=== PATIENT | male | born 1955 | race Caucasian/White ===

== ENCOUNTER → 2017-12-27 | Outpatient (CLI) | payer OTHER ==
[2017-12-27 12:48] LABS: CREATININE 0.9 mg/dL (0.5-1.5)
== END | disposition home or self-care (01) ==
LOC: LAB 12:10
PROVIDERS: ATTEND Internal Medicine Gastroenterology
DX: R63.4 Abnormal weight loss (principal); R11.0 Nausea
CPT/HCPCS: 36415; 82565; 84520

== ENCOUNTER → 2020-01-06 | Outpatient (CLI) | payer OTHER ==
[~2020-01-06] MED LIST: BUPR150SR PO; CHOL200079 PO; CYAN250014 PO; ENOX60DI7 SQ; LISI10TA7 PO; MULT-1203 PO; OMEG1CAP31 PO; OMEP-272 PO; SIMV-43 PO; WARF7.5T49 PO
== END | disposition home or self-care (01) ==
LOC: OIH 14:17
PROVIDERS: ATTEND Family Medicine
DX: I10 Essential (primary) hypertension (principal)
CPT/HCPCS: 71046

== ENCOUNTER → 2020-02-06 | Outpatient (CLI) | payer OTHER | END | disposition home or self-care (01) | LOC: RAH 13:08 | PROVIDERS: ATTEND Internal Medicine | DX: M47.9 Spondylosis, unspecified (principal); I10 Essential (primary) hypertension | CPT/HCPCS: 71046 ==

== ENCOUNTER 2020-03-11 05:43 | Observation (INO) | payer OTHER ==
[2020-02-25 11:16] LABS: BASOPHILS % (AUTO) 0.3 % (0.0-5.0); EOSINOPHILS % (AUTO) 0.5 % (0.0-8.0); HEMATOCRIT 40.1 % (42-54); LYMPHOCYTES % (AUTO) 21.2 % (21.0-51.0); MEAN CORPUSCULAR HEMOGLOBIN 30.3 pg (27.0-33.0); MEAN CORPUSCULAR HGB CONC 32.9 g/dL (32.0-36.0); MEAN CORPUSCULAR VOLUME 92.2 fL (79-99); MONOCYTES % (AUTO) 8.4 % (3.0-13.0); NEUTROPHILS % (AUTO) 68.6 % (40.0-77.0); PLATELET COUNT (AUTO) 387 K/uL (130-400); RED BLOOD CELL COUNT(AUTO) 4.35 MIL/uL (4.50-6.20); RED CELL DISTRIBUTION WIDTH 12.4 % (11.0-15.5); WHITE BLOOD COUNT (AUTO) 8.7 K/uL (4.8-10.8)
[2020-02-25 11:25] LABS: POTASSIUM 5.4 mmol/L (3.5-5.1)
[2020-02-25 12:40] LABS: INR 2.3 (0.85-1.15); PROTHROMBIN TIME 24.1 SEC (9.6-11.6)
[2020-03-09 12:46] LABS: BASOPHILS % (AUTO) 0.4 % (0.0-5.0); HEMATOCRIT 37.4 % (42-54); LYMPHOCYTES % (AUTO) 29.1 % (21.0-51.0); MEAN CORPUSCULAR HEMOGLOBIN 29.6 pg (27.0-33.0); MEAN CORPUSCULAR HGB CONC 32.6 g/dL (32.0-36.0); MEAN CORPUSCULAR VOLUME 90.8 fL (79-99); MONOCYTES % (AUTO) 8.7 % (3.0-13.0); PLATELET COUNT (AUTO) 342 K/uL (130-400); RED BLOOD CELL COUNT(AUTO) 4.12 MIL/uL (4.50-6.20); RED CELL DISTRIBUTION WIDTH 12.9 % (11.0-15.5); WHITE BLOOD COUNT (AUTO) 7.1 K/uL (4.8-10.8)
[2020-03-09 13:00] LABS: CREATININE 0.9 mg/dL (0.5-1.5)
[2020-03-09 13:03] LABS: INR 1.18 (0.85-1.15); PARTIAL THROMBOPLASTIN TIME 32.3 SEC (26.3-35.5); PROTHROMBIN TIME 12.7 SEC (9.6-11.6)
[2020-03-10 09:59] VITALS: BP 113/72
[~2020-03-11] VITALS: Ht 175.3 cm; Wt 90.5 kg
[2020-03-11] VITALS (25 sets, daily range): BP systolic 110–156; BP diastolic 69–94
[~2020-03-11 05:43] MED LIST changes: +APIX5TAB PO; -ENOX60DI7 SQ; -LISI10TA7 PO; +LISI20TA24 PO
[2020-03-11] MEDS ORDERED: CLINDAMYCIN IVPB 900MG/50ML 50 ML IV ONE (06:39)
[2020-03-11] MEDS ORDERED: LACTATED RINGERS 1000ML 1,000 ML IV ONE (06:39)
[2020-03-11] MEDS ORDERED: SUCCINYLCHOLINE CHLORIDE 20 MG/ML 10 ML VIAL ONE (07:26)
[2020-03-11] MEDS ORDERED: ONDANSETRON 4MG INJ ONE (07:26)
[2020-03-11] MEDS ORDERED: LIDOCAINE PF 100MG/5ML (2%) SYRINGE 5ML ONE (07:26)
[2020-03-11] MEDS ORDERED: DEXAMETHASONE SOD PHOSPHATE 10MG/ML 1ML VIAL ONE (07:26)
[2020-03-11] MEDS ORDERED: GLYCOPYRROLATE 1 MG/5 ML SYRINGE ONE (07:26)
[2020-03-11] MEDS ORDERED: ROCURONIUM 10MG/1ML SYR 10 MG/ML ML ONE ×2 (07:27→08:54)
[2020-03-11] MEDS ORDERED: MIDAZOLAM HCL 1 MG/ML 2ML VIAL ONE (07:27)
[2020-03-11] MEDS ORDERED: FENTANYL CITRATE PF 50 MCG/1 ML 2ML VIAL ONE ×3 (07:27→11:22)
[2020-03-11] MEDS ORDERED: PROPOFOL 10 MG/ML 20ML VIAL IV ONE (07:27)
[2020-03-11] MEDS ORDERED: NEOSTIGMINE 5MG/5ML SYR IV ONE (07:27)
[2020-03-11] MEDS ORDERED: MEPERIDINE-PF 25 MG/ML SYG ONE ×4 (07:30→12:22)
[2020-03-11] MEDS ORDERED: ROPIVACAINE 0.5% 5MG/ML 30ML IJ ONE (07:35)
[2020-03-11] MEDS ORDERED: TRANEXAMIC ACID 1000MG/10ML ONE (08:16)
[2020-03-11] MEDS ORDERED: HETASTARCH IN 0.9 % NACL 500 ML IV ONE (08:34)
[2020-03-11] MEDS ORDERED: KETOROLAC 30MG VIAL (30MG/ML) ONE (11:22)
[2020-03-11] MEDS: 0.9%NACL 1000ML 1,000 ML IV SCH ×2 (11:45→22:25)
[2020-03-11] MEDS ORDERED: TRAMADOL HCL 50 MG TABLET PO PRN (11:45)
[2020-03-11] MEDS: ACETAMINOPHEN 500 MG TABLET PO SCH ×2 (11:45→20:40)
[2020-03-11] MEDS ORDERED: ONDANSETRON 4MG INJ IVP PRN (11:45)
[2020-03-11] MEDS ORDERED: HEPARIN 5,000 UNIT VIAL SQ SCH (12:45)
[2020-03-11] MEDS ORDERED: HYDROMORPHONE 1 MG INJ IVP PRN (20:30)
[2020-03-11] MEDS: CLINDAMYCIN IVPB 900MG/50ML 50 ML IVPB SCH (20:39)
[2020-03-11] MEDS: WARFARIN SODIUM 5 MG TAB PO SCH (20:39)
[2020-03-11] MEDS: ENOXAPARIN SODIUM 30 MG/0.3 ML SQ SCH (20:39)
[2020-03-11] MEDS: BUPROPION HCL 150 MG TABLET.SA PO SCH (20:39)
[2020-03-11] MEDS: MORPHINE 4 MG SYG IVP PRN ×2 (20:40→23:07)
[2020-03-11] MEDS: LISINOPRIL 20 MG TABLET PO SCH (20:40)
[2020-03-11] MEDS ORDERED: OMEPRAZOLE MAGNESIUM 20 MG PO SCH (21:00)
[2020-03-12] MEDS: CLINDAMYCIN IVPB 900MG/50ML 50 ML IVPB SCH (03:23)
[2020-03-12] MEDS: ACETAMINOPHEN 500 MG TABLET PO SCH ×3 (03:23→20:08)
[2020-03-12 03:54] VITALS: BP 117/67
[2020-03-12 04:01] LABS: HEMATOCRIT 28.2 % (42-54); MEAN CORPUSCULAR HEMOGLOBIN 29.7 pg (27.0-33.0); MEAN CORPUSCULAR VOLUME 90.1 fL (79-99); RED BLOOD CELL COUNT(AUTO) 3.13 MIL/uL (4.50-6.20); RED CELL DISTRIBUTION WIDTH 12.7 % (11.0-15.5); WHITE BLOOD COUNT (AUTO) 10.4 K/uL (4.8-10.8)
[2020-03-12 04:31] LABS: CREATININE 0.7 mg/dL (0.5-1.5); POTASSIUM 4.1 mmol/L (3.5-5.1)
[2020-03-12] MEDS: 0.9%NACL 1000ML 1,000 ML IV SCH (07:45)
[2020-03-12 08:04] VITALS: BP 116/67
[2020-03-12] MEDS: POLYETHYLENE GLYCOL 3350 17 GM POWD.PACK PO SCH (08:31)
[2020-03-12] MEDS: OXYCODONE HCL 5 MG TAB PO PRN ×2 (08:31→20:08)
[2020-03-12] MEDS: PANTOPRAZOLE 40 MG TAB DR PO SCH (08:31)
[2020-03-12] MEDS: ENOXAPARIN SODIUM 30 MG/0.3 ML SQ SCH ×2 (08:32→20:09)
[2020-03-12 12:09] VITALS: BP 167/79
[2020-03-12 17:08] VITALS: BP 129/72
[2020-03-12 20:00] VITALS: BP 103/64
[2020-03-12] MEDS: WARFARIN SODIUM 5 MG TAB PO SCH (20:08)
[2020-03-12] MEDS: LISINOPRIL 20 MG TABLET PO SCH (20:08)
[2020-03-12] MEDS: BUPROPION HCL 150 MG TABLET.SA PO SCH (20:08)
[2020-03-12 23:34] VITALS: BP 97/58
[2020-03-13 03:53] VITALS: BP 112/64
[2020-03-13] MEDS: ACETAMINOPHEN 500 MG TABLET PO SCH ×3 (04:08→20:48)
[2020-03-13 05:24] LABS: BASOPHILS % (AUTO) 0.4 % (0.0-5.0); EOSINOPHILS % (AUTO) 0.8 % (0.0-8.0); HEMATOCRIT 28.6 % (42-54); LYMPHOCYTES % (AUTO) 19.2 % (21.0-51.0); MEAN CORPUSCULAR HEMOGLOBIN 29.8 pg (27.0-33.0); MEAN CORPUSCULAR HGB CONC 32.5 g/dL (32.0-36.0); MEAN CORPUSCULAR VOLUME 91.7 fL (79-99); MONOCYTES % (AUTO) 8.3 % (3.0-13.0); NEUTROPHILS % (AUTO) 70.8 % (40.0-77.0); PLATELET COUNT (AUTO) 285 K/uL (130-400); RED BLOOD CELL COUNT(AUTO) 3.12 MIL/uL (4.50-6.20); RED CELL DISTRIBUTION WIDTH 13.5 % (11.0-15.5); WHITE BLOOD COUNT (AUTO) 8.3 K/uL (4.8-10.8)
[2020-03-13 05:39] LABS: INR 1.18 (0.85-1.15); PARTIAL THROMBOPLASTIN TIME 30.1 SEC (26.3-35.5); PROTHROMBIN TIME 12.7 SEC (9.6-11.6)
[2020-03-13 08:00] VITALS: BP 98/62
[2020-03-13] MEDS ORDERED: MAGNESIUM CITRATE 296 ML SOLUTION PO SCH (08:00)
[2020-03-13] MEDS: ENOXAPARIN SODIUM 30 MG/0.3 ML SQ SCH ×2 (08:11→20:47)
[2020-03-13] MEDS: PANTOPRAZOLE 40 MG TAB DR PO SCH (08:11)
[2020-03-13] MEDS: POLYETHYLENE GLYCOL 3350 17 GM POWD.PACK PO SCH (08:11)
[2020-03-13] MEDS: OXYCODONE HCL 5 MG TAB PO PRN ×2 (08:12→23:02)
[2020-03-13 11:00] VITALS: BP_SYST 110; BP_SYST 96; BP_DIAS 68; BP_DIAS 77
[2020-03-13] MEDS ORDERED: BISACODYL 10 MG SUPP.RECT RC PRN ×2 (17:00→17:15)
[2020-03-13 19:57] VITALS: BP 109/59
[2020-03-13] MEDS: BUPROPION HCL 150 MG TABLET.SA PO SCH (20:47)
[2020-03-13] MEDS: WARFARIN SODIUM 5 MG TAB PO SCH (20:48)
[2020-03-13] MEDS: LISINOPRIL 20 MG TABLET PO SCH (20:48)
[2020-03-13 23:33] VITALS: BP 93/51
[2020-03-14] MEDS: ACETAMINOPHEN 500 MG TABLET PO SCH (03:28)
[2020-03-14 04:00] VITALS: BP 95/57
[2020-03-14 05:20] LABS: INR 1.23 (0.85-1.15); PROTHROMBIN TIME 13.2 SEC (9.6-11.6)
[2020-03-14 08:05] VITALS: BP 85/55
[2020-03-14] MEDS: POLYETHYLENE GLYCOL 3350 17 GM POWD.PACK PO SCH (09:14)
[2020-03-14] MEDS: PANTOPRAZOLE 40 MG TAB DR PO SCH (09:15)
[2020-03-14] MEDS: ENOXAPARIN SODIUM 30 MG/0.3 ML SQ SCH (09:15)
[2020-03-14] MEDS: OXYCODONE HCL 5 MG TAB PO PRN (09:23)
[2020-03-14 11:22] VITALS: BP 97/52
[2020-03-14] MEDS ORDERED: BISACODYL 10 MG SUPP.RECT RC PRN (11:45)
== END 2020-03-14 12:15 | disposition home or self-care (01) ==
LOC: DAH 05:43 → DAHIP 05:44 → 3AH 13:10
PROVIDERS: ADMIT Orthopaedic Surgery; ATTEND Orthopaedic Surgery
DX: M16.11 Unilateral primary osteoarthritis, right hip (principal); R11.2 Nausea with vomiting, unspecified; Z20.828 Contact with and (suspected) exposure to other viral communicable diseases; D68.51 Activated protein C resistance; Z86.718 Personal history of other venous thrombosis and embolism; Z79.01 Long term (current) use of anticoagulants; Z79.899 Other long term (current) drug therapy
CPT/HCPCS: 27130; 36415 ×6; 73503; 73521; 80048 ×3; 85025 ×3; 85027; 85610 ×4; 85730 ×3; 86850; 86900; 86901; 86923; 87641 ×2; 88304; 88311; 93005 ×2; 96361 ×2; 96365; 96366; 96372 ×4; 96375; 96376; 97039 ×6; 97116 ×5; 97161; 97530; A4215; A4221; A4222; A4223; A4344; A4600; A4606; A4649 ×4; A4663; A4930; A6260 ×2; A9272; C1776; C9803 ×2; G0378 ×70; G8978; G8979; G8980; G8981; G8982; G8983; J0330; J1100; J1644; J1650 ×6; J1885; J2001; J2175 ×4; J2250; J2270 ×2; J2405; J2704; J2710; J2795; J3010 ×3; J3490 ×5; J7120; U0003 ×2